=== PATIENT | female | born 1950 | race Caucasian/White ===

== ENCOUNTER → 2016-09-03 | Outpatient (CLI) | payer BC | LOC: M WUC 09:16 | PROVIDERS: ATTEND Emergency Medicine | DX: Z00.00 Encounter for general adult medical examination without abnormal findings (principal) ==

== ENCOUNTER → 2017-12-08 | Outpatient (REF) | payer BC | LOC: M LAB REF 12-09 12:10 | DX: C50.912 Malignant neoplasm of unspecified site of left female breast (principal) | CPT/HCPCS: 88305 ==

== ENCOUNTER → 2017-12-14 | Outpatient (CLI) | payer BC ==
[2017-12-14 09:06] LABS: BASO % 0.8 % (0.0-1.0); EOS # 0.1 10^3/uL (0.0-0.50); EOS % 2.3 % (0.0-3.0); HEMATOCRIT 40.1 % (36.0-47.0); HEMOGLOBIN 13.7 g/dl (12.0-15.5); IMMATURE GRANULOCYTE % 0.4 % (0-3.0); LYMPH # 1.4 10^3/uL (1.5-4.5); MEAN CORPUSCULAR HEMOGLOBIN 32.2 pg (27.0-33.0); MEAN CORPUSCULAR HGB CONC 34.2 g/dl (32.0-36.5); MEAN CORPUSCULAR VOLUME 94.4 fl (80.0-96.0); MONO # 0.4 10^3/uL (0.0-0.8); MONO % 7.8 % (0.0-5.0); NEUTROPHILS # 3.3 10^3/uL (1.8-7.7); NEUTROPHILS % 61.7 % (36.0-66.0); PLATELET COUNT, AUTOMATED 231 10^3/uL (150-450); RED BLOOD COUNT 4.25 10^6/uL (4.00-5.40); RED CELL DISTRIBUTION WIDTH 12.3 % (11.5-14.5); WHITE BLOOD COUNT 5.3 10^3/uL (4.0-10.0)
[2017-12-14 09:37] LABS: ALBUMIN 3.8 GM/DL (3.2-5.2); ALBUMIN/GLOBULIN RATIO 1.31 (1.00-1.93); ALKALINE PHOSPHATASE 79 U/L (45-117); ALT/SGPT 24 U/L (12-78); ANION GAP 7 MEQ/L (8-16); AST/SGOT 21 U/L (7-37); BILIRUBIN,TOTAL 0.7 MG/DL (0.2-1.0); BLOOD UREA NITROGEN 11 MG/DL (7-18); CARBON DIOXIDE LEVEL 28 MEQ/L (21-32); CHLORIDE LEVEL 108 MEQ/L (98-107); CHOLESTEROL LEVEL 197 MG/DL (<200); CHOLESTEROL RISK RATIO 1.931 (<5); CREATININE FOR GFR 0.58 MG/DL (0.55-1.30); FREE T4 0.76 NG/DL (0.76-1.46); GLOMERULAR FILTRATION RATE > 60.0 (>45); GLUCOSE, FASTING 84 MG/DL (70-100); HDL CHOLESTEROL 102 MG/DL (>40); LDL CHOLESTEROL 77.4 MG/DL (<100); NON-HDL-C 95 MG/DL; POTASSIUM SERUM 4.4 MEQ/L (3.5-5.1); SODIUM LEVEL 143 MEQ/L (136-145); TOTAL PROTEIN 6.7 GM/DL (6.4-8.2); TRIGLYCERIDES LEVEL 88 MG/DL (<150)
== END ==
LOC: M WUC 08:04
DX: E78.5 Hyperlipidemia, unspecified (principal); Z13.0 Encounter for screening for diseases of the blood and blood-forming organs and certain disorders involving the immune mechanism
CPT/HCPCS: 84443

== ENCOUNTER → 2018-01-10 | Outpatient (CLI) | payer MEDICARE | LOC: M RAD 08:33 | DX: C7A.8 Other malignant neuroendocrine tumors (principal) | CPT/HCPCS: 78804 ==

== ENCOUNTER → 2018-01-23 | Outpatient (CLI) | payer MEDICARE ==
[~2018-01-23] MED LIST: LIDOCAINE 1% MDV 20ML VIAL As Ordered
== END ==
LOC: M RADPRO 08:28
DX: C7A.090 Malignant carcinoid tumor of the bronchus and lung (principal)
CPT/HCPCS: 19083

== ENCOUNTER → 2018-03-07 | Outpatient (CLI) | payer MEDICARE ==
[~2018-03-07] MED LIST changes: +GASTROGRAFIN SOLUTION 30ML (Q9963) As Ordered; +ISOVUE-370 76% 100ML VIAL (Q9967) As Ordered; -LIDOCAINE 1% MDV 20ML VIAL As Ordered
== END ==
LOC: M RAD 14:16
DX: C34.32 Malignant neoplasm of lower lobe, left bronchus or lung (principal); K76.89 Other specified diseases of liver
CPT/HCPCS: Q9963

== ENCOUNTER → 2018-05-15 | Outpatient (CLI) | payer MEDICARE ==
[~2018-05-15] MED LIST changes: +AUGM500T34 PO; +CEPH500C PO; -GASTROGRAFIN SOLUTION 30ML (Q9963) As Ordered; +GASTROGRAFIN SOLUTION 30ML (Q9963) As Ordered ONE; -ISOVUE-370 76% 100ML VIAL (Q9967) As Ordered; +ISOVUE-370 76% 100ML VIAL (Q9967) As Ordered ONE; +MULTCAP PO
--- NOTE | 2018-05-15 18:36 | REP ---
CT chest with IV contrast: History: Lung carcinoma. Comparison CT study March 07, 2018. Comparison is also made with the December 16, [address] contrast dose: 100 mL of intravenous Isovue [address] findings: The more medial of the two nodular opacities in the left lower lobe measures 2.4 cm in greatest transverse dimension on March 07, 2018. This measures 2.3 cm in greatest transverse dimension today and is felt to be unchanged. The larger opacity lateral to this in the left base has become larger and more confluent. Some of this may be postobstructive change. I cannot exclude progressive neoplasm. There is a infrahilar central oval shaped nodule showing bronchial obstruction above this which measures 2.0 x 1.4 cm today. This previously measured 2.1 x 1.5 cm, it is felt to be unchanged. There is right hilar lymph node enlargement with two separate lymph nodes unchanged from December 26, 2017. There is subcarinal adenopathy, unchanged, measuring 16 mm in short axis dimension. No new adenopathy. No new pulmonary parenchymal opacity. The previously noted right posterior 5th rib findings are again seen. There is no rib destruction, however. No acute bony destructive lesion is appreciated. Impression: Intrathoracic findings are stable except that there is more consolidation in the left lower lobe which may be postobstructive pneumonia. Electronically Signed by Julian Ham MD 05/15/2018 07:49 P
--- NOTE | 2018-05-15 18:38 | REP ---
CT abdomen and pelvis with IV and oral contrast: History: Lung carcinoma. Comparison study March 07, 2018. CT contrast dose: 100 mL of intravenous Isovue [address] findings: A somewhat hypodense mass lesion is again seen in the left lobe of the liver measuring 2.2 cm in greatest dimension today, previously 2.2 cm. This is felt to be unchanged. There are two 1 cm lesions in the right superior liver unchanged. The largest lesion is again seen in the posterior segment right lobe. On March 07, 2018 this measured 3.4 cm in greatest diameter. Today this lesion measures 2.9 cm. It is felt to be slightly smaller. There are hepatic cysts which of course are unchanged. No new liver lesion is appreciated. Spleen is unremarkable. No renal lesion is observed. No adrenal masses seen on either side. The pancreas is unremarkable. There is a moderate to severe levoconvex rotoscoliosis in the upper lumbar spine. This curvature distorts visceral anatomy somewhat in the abdomen but this is unchanged. No retroperitoneal adenopathy is seen. Normal appendix is noted. Small and large bowel loops are unremarkable in the abdomen and pelvis. No uterine or adnexal abnormality is seen. No bony destructive lesion is seen. Impression: The largest hepatic metastasis appears to have decreased somewhat in size. Otherwise unchanged. Electronically Signed by Julian Ham MD 05/15/2018 07:49 P
== END ==
LOC: M RAD 13:43
PROVIDERS: ATTEND Internal Medicine Medical Oncology
DX: C34.90 Malignant neoplasm of unspecified part of unspecified bronchus or lung (principal)
CPT/HCPCS: 71260; 74177; Q9963; Q9967

== ENCOUNTER → 2018-09-05 | Outpatient (CLI) | payer MEDICARE ==
[~2018-09-05] MED LIST changes: -GASTROGRAFIN SOLUTION 30ML (Q9963) As Ordered ONE; -ISOVUE-370 76% 100ML VIAL (Q9967) As Ordered ONE
--- NOTE | 2018-09-07 15:26 | REP ---
REASON: Metastatic neuroendocrine tumor. PRIORS: CT scans of the abdomen and pelvis of 05/15/2018 and 03/07/2018 were reviewed. I have no prior CT/PET for comparison. After the intravenous administration of 8.8 millicuries of FDG-18 triplane whole body PET/CT was performed from the skull base to the mid thigh. The CT finding of a mass lesion in the left lung lower lobe on the 05/15/2018 CT of the chest shows the mass lesion to be hypermetabolic with a maximum SUV value just over 4.0. Also in the left lower lobe but more superior than the aforementioned is an additional hypermetabolic lesion having SUV values 2.7 and greater. Although difficult to evaluate in the hepatic parenchyma the metastatic foci seen on the CT are hypermetabolic. In the left hilum there is a node which is showing increased avidity for FDG, however, it is not frankly hypermetabolic with maximal SUV values less than 2.5. No additional abnormal hypermetabolic foci are seen in the neck, check, abdomen, or pelvis. IMPRESSION: Intrathoracic and intra-abdominal hypermetabolic lesions as described above. Electronically Signed by Darwin Marte DO 09/07/2018 06:57 P
== END ==
LOC: M PLARAD 11:23
PROVIDERS: ATTEND Internal Medicine Hematology & Oncology
DX: C34.31 Malignant neoplasm of lower lobe, right bronchus or lung (principal)
CPT/HCPCS: 78815; A9552

== ENCOUNTER → 2018-09-22 | Outpatient (CLI) | payer MEDICARE ==
[~2018-09-22] MED LIST changes: +LIDOCAINE 1% MDV 20ML VIAL As Ordered ONE
--- NOTE | 2018-09-22 13:23 | REP ---
Chest x-ray: Single PA radiograph. History: Status post a needle biopsy left lung base. Findings: There is no evidence of pneumothorax or hydrothorax. Scoliosis is seen. Hazy opacity is seen at the left lung base consistent with the biopsy target. Impression: No pneumothorax seen. Electronically Signed by Julian Ham MD 09/22/2018 06:29 P
--- NOTE | 2018-09-22 17:25 | REP ---
CT-guided left lower lobe lung biopsy The procedure is performed by SIVAN Castañeda, under the personal supervision of Dr. Ham. The patient has a history of a neuroendocrine metastasis on a PET/CT scan dated 09/05/2018. The risks and benefits of the procedure were explained to the patient and informed consent was obtained both verbally and written. Directly prior to the start of the procedure, a formal timeout was done in the exam room. The left lower lobe lung was localized using CT guidance. Skin was prepped and draped in the usual sterile fashion. 5 ml of 1% lidocaine was used as a local anesthetic. Using CT guidance a 19/20 gauge coaxial needle biopsy system was inserted and advanced into the nodule. 4 core biopsy samples were obtained and sent to the lab. CT images obtained directly after the biopsy show a very small pneumothorax. After the appropriate amount of monitored convalescence the patient was discharged from the department. Reviewed by SIVAN Olson 09/22/2018 12:42 P Electronically Signed by Julian Ham MD 09/22/2018 05:16 P
== END ==
LOC: M RADPRO 08:15
PROVIDERS: ATTEND Internal Medicine Hematology & Oncology
DX: R91.8 Other nonspecific abnormal finding of lung field (principal); M41.9 Scoliosis, unspecified

== ENCOUNTER → 2019-01-08 | Outpatient (CLI) | payer MEDICARE ==
[~2019-01-08] MED LIST changes: -LIDOCAINE 1% MDV 20ML VIAL As Ordered ONE
[2019-01-08 13:02] LABS: BASO % 0.5 % (0.0-1.0); EOS # 0.2 10^3/uL (0.0-0.5); HEMATOCRIT 41.3 % (36.0-47.0); HEMOGLOBIN 14.2 g/dl (12.0-15.5); LYMPH # 1.8 10^3/uL (1.5-5.0); LYMPH % 24.3 % (24.0-44.0); MEAN CORPUSCULAR HEMOGLOBIN 32.7 pg (27.0-33.0); MEAN CORPUSCULAR HGB CONC 34.4 g/dl (32.0-36.5); MEAN CORPUSCULAR VOLUME 95.2 fl (80.0-96.0); MONO # 0.8 10^3/uL (0.0-0.8); MONO % 10.9 % (0.0-5.0); NEUTROPHILS # 4.7 10^3/uL (1.5-8.5); NEUTROPHILS % 61.9 % (36.0-66.0); PLATELET COUNT, AUTOMATED 248 10^3/uL (150-450); RED BLOOD COUNT 4.34 10^6/uL (4.00-5.40); WHITE BLOOD COUNT 7.5 10^3/uL (4.0-10.0)
[2019-01-08 13:21] LABS: ALBUMIN 4.3 GM/DL (3.2-5.2); ALT/SGPT 22 U/L (12-78); BILIRUBIN,TOTAL 0.6 MG/DL (0.2-1.0); BLOOD UREA NITROGEN 18 MG/DL (7-18); CALCIUM LEVEL 9.8 MG/DL (8.8-10.2); CARBON DIOXIDE LEVEL 31 MEQ/L (21-32); CHLORIDE LEVEL 103 MEQ/L (98-107); CREATININE FOR GFR 0.78 MG/DL (0.55-1.30); GLOMERULAR FILTRATION RATE > 60.0 (>45); GLUCOSE, FASTING 104 MG/DL (70-100); LDH LACTATE DEHYDROGENASE 241 U/L (84-246); POTASSIUM SERUM 4.5 MEQ/L (3.5-5.1); SODIUM LEVEL 139 MEQ/L (136-145); TOTAL PROTEIN 7.2 GM/DL (6.4-8.2)
[2019-01-08 18:47] LABS: ERYTHROCYTE SEDIMENTATION RATE 14 mm/hr (0-30)
[2019-01-11 10:09] LABS: ANGIOTENSIN 1 CONVERTING ENZYM 54 U/L (14-82)
== END ==
LOC: M WUC 10:56
PROVIDERS: ATTEND Internal Medicine Hematology & Oncology
DX: Z85.118 Personal history of other malignant neoplasm of bronchus and lung (principal)

== ENCOUNTER 2019-04-24 05:47 | Day surgery (SDC) | payer MEDICARE ==
[~2019-04-24] VITALS: Ht 165.1 cm; Wt 49.0 kg
[2019-04-24] MEDS ORDERED: LIDOCAINE 1% MDV 20ML VIAL SQ PRN (06:00)
[2019-04-24] MEDS ORDERED: ceFAZolin SOD 1 GM in D5W MINI-BAG PLUS 50 ML IV ONE (07:00)
[2019-04-24] MEDS ORDERED: HEPARIN SOD (PORCINE) 5000 UNITS/ML VIAL SQ ONE (07:00)
[2019-04-24] MEDS ORDERED: LR 1,000 ML IV ONE (07:00)
[2019-04-24] MEDS ORDERED: BUPIVACAINE HCL 0.25% 30 ML VIAL As Ordered ONE (07:13)
[2019-04-24] MEDS ORDERED: LIDOCAINE 1% SDV INJ 30 ML VIAL As Ordered ONE (07:13)
[2019-04-24] MEDS ORDERED: PROPOFOL 200 MG/20 ML VIAL As Ordered ONE (07:21)
[2019-04-24] MEDS ORDERED: dexameTHASONE 4 MG/ML 1ML VIAL (J1100) As Ordered ONE (07:21)
[2019-04-24] MEDS ORDERED: LIDOCAINE 2% INJ 100 MG/5 ML SDV (FOR ANES.) As Ordered ONE (07:21)
[2019-04-24] MEDS ORDERED: MIDAZOLAM INJ 2 MG/2 ML VIAL (J2250) As Ordered ONE (07:22)
[2019-04-24] MEDS ORDERED: fentaNYL 100 MCG/2 ML INJECTION (J3010) As Ordered ONE (07:23)
[2019-04-24] MEDS ORDERED: ONDANSETRON 4MG/2ML VIAL (J2405) As Ordered ONE (08:25)
[2019-04-24] MEDS ORDERED: PERC5TAB12 PO (09:05)
[2019-04-24] MEDS ORDERED: PERCOCET 5MG/325MG TAB PO PRN (09:15)
[2019-04-24] MEDS ORDERED: ONDANSETRON 4MG/2ML VIAL (J2405) IV PRN ×2 (09:15)
[2019-04-24] MEDS ORDERED: fentaNYL 100 MCG/2 ML INJECTION (J3010) IV PRN (09:15)
[2019-04-24] MEDS ORDERED: LR 1,000 ML IV SCH (09:15)
[2019-04-24 09:35] VITALS: BP 144/79
--- NOTE | 2019-04-26 10:37 | ROOPDOC ---
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 FITNESS MANAGEMENT DIRECTOR: ANESTHESIA: moderate sedation and local anesthetic ESTIMATED BLOOD LOSS: Approximately 5 mL. COMPLICATIONS: none REMARKS: none PROCEDURE NOTE: INDICATIONS: Ms. Plasencia is a 68 year old woman who was diagnosed with neuroendocrine carcinoma of unknown primary with metastasis to the left breast. Patient undergo chemotherapy treatment for presumed lung primary. She was doing well, however, she has been bothered by left breast mass which constantly reminds her about the stress of treatment causing anxiety and pain. Patient wished to have the left breast mass excised. We had an extensive discussion that excision of the lesion will not result in improvement of her prognosis and that it is aimed at alleviating her pain and anxiety about the lesion as well as to obtain more tissues for further evaluation. She was medically cleared by her primary care doctor. Risks and possible complications of surgical procedure including bleeding, infection and injury to surrounding structures were explained to the patient and she wished to proceed. Consent was signed. The site of palpable lump was marked and my initials were placed on the operative site (left). Since patient has an active diagnosis of cancer, subcutaneous injection of 5000 units of heparin was done in Preop. DETAILS: Patient was taken to the operating room and placed supine on the operating room table. A sign in was called stating patients name, date of and the procedure to be done. Preoperative antibiotics were infused. Smooth induction of moderate sedation anesthesia was done. Patients hands were extended on arm rests and placed in the protective foam. Care was taken not to over extend patients arms. Patients left breast was prepped and draped in the usual fashion. The lesion was evaluated with ultrasound perioperatively to confirm its location. Lesion was found to be relatively superficial. Appropriate time out was done and patients name, date of , and the procedure to be done were confirmed. Local anesthetic using 1% lidocaine and 0.25 % Marcaine 50/50 mix was injected to create a field block with care taken not to distort the lesion. Radial lateral incision was made over the lump with scalpel number 15 and the sharp dissection was continued through the s ubcutaneous tissues. The lump was identified and excised carefully with a rim of surrounding tissues. The mass was marked with short stitch marking superior edge and long stitch marking lateral edge. The specimen was labeled with patients name and farhad cation left breast mass and sent to pathology. The resection cavity was inspected for bleeding and appropriate hemostasis was achieved. Additional local anesthetic was given to surrounding tissues. The deep layers were approximated with 3-0 Vicryl stitch to obliterate the space and to decrease possible breast deformity formation. The dermis was closed with 3-0 Monocryl and skin was closed with 4-0 Monocryl. Steri strips was placed over the incision. Patient emerged from the anesthesia without any problems. Fluffs were placed over the operating site and patients upper chest was wrapped snuggly in the AMITA wrap. Patient tolerated procedure well and was taken to recovery unit in stable condition. MARISELA ROBERT DO Apr 26, 2019 10:37
== END 2019-04-24 09:55 | disposition home or self-care (01) ==
LOC: M SDC 05:47
PROVIDERS: ATTEND Surgery
DX: C50.912 Malignant neoplasm of unspecified site of left female breast (principal); E78.49 Other hyperlipidemia
CPT/HCPCS: 19120; 88305; J0690; J2250; J2405; J3010

== ENCOUNTER → 2019-05-05 | Outpatient (CLI) | payer MEDICARE ==
[~2019-05-05] MED LIST changes: +PERC5TAB12 PO
[2019-05-05 14:05] LABS: BLOOD UREA NITROGEN 16 MG/DL (7-18); CALCIUM LEVEL 9.1 MG/DL (8.8-10.2); CARBON DIOXIDE LEVEL 30 MEQ/L (21-32); CHLORIDE LEVEL 106 MEQ/L (98-107); GLOMERULAR FILTRATION RATE > 60.0 (>45); GLUCOSE, FASTING 90 MG/DL (70-100); POTASSIUM SERUM 4.8 MEQ/L (3.5-5.1); SODIUM LEVEL 142 MEQ/L (136-145)
== END ==
LOC: M WUC 08:14
PROVIDERS: ATTEND Surgery
DX: C7A.8 Other malignant neuroendocrine tumors (principal)

== ENCOUNTER → 2019-05-07 | Outpatient (CLI) | payer MEDICARE ==
[~2019-05-07] MED LIST changes: +PROHANCE 279.3MG/ML 5ML VIAL (A9576) As Ordered ONE
--- NOTE | 2019-05-07 13:04 | REP ---
Bilateral breast MRI study without and with IV gadolinium: History: Neuroendocrine carcinoma diagnosed initially in the left breast. Technique: Three Judie MRI imaging was performed with a dedicated breast coil. Axial, coronal, and sagittal T1 and T2-weighted scans were obtained with and without fat saturation in the usual fashion. The study includes dynamically acquired post gadolinium enhanced imaging subtraction imaging. Maximal intensity projection and multiplanar re-formation imaging is included as well. The study was interpreted with the aid of YecurisD, an FDA approved computer-aided detection (CAD) software program, on a dedicated breast MRI work station. The gadolinium enhancement dose is 10 mL of intravenous ProHance. Findings: There is a moderate amount of fibroglandular tissue bilaterally and roughly symmetrically. There is an area of in the left breast upper outer quadrant posteriorly which demonstrates micrometallic field susceptibility artifact and postoperative change from recent excision biopsy. There is no evidence of axillary lymphadenopathy or significant breast cystic change. Some magnetic field susceptibility artifact is visible here. There is no evidence of mass or abnormal contrast enhancement in this region. High-resolution pre and postcontrast T1 and T2-weighted scans show no other area of suspicious morphologic abnormality in either breast. Dynamically acquired sequential post contrast images show no suspicious area of enhancement and/or washout in either breast to suggest malignancy. Subtraction images are unremarkable. Impression: BIRADS category 2 benign findings. Postoperative changes upper outer quadrant left breast. No suspicious abnormality. Electronically Signed by Julian Ham MD 05/07/2019 06:18 P
== END ==
LOC: M RAD 09:25
PROVIDERS: ATTEND Surgery
DX: C7A.8 Other malignant neuroendocrine tumors (principal); C50.911 Malignant neoplasm of unspecified site of right female breast; C50.912 Malignant neoplasm of unspecified site of left female breast
CPT/HCPCS: A9576; C8908

== ENCOUNTER → 2019-11-08 | Outpatient (CLI) | payer MEDICARE ==
[~2019-11-08] MED LIST changes: -PROHANCE 279.3MG/ML 5ML VIAL (A9576) As Ordered ONE
[2019-11-08 11:41] LABS: BASO % 0.4 % (0.0-1.0); EOS # 0.1 10^3/uL (0.0-0.5); EOS % 0.6 % (0.0-3.0); HEMATOCRIT 40.3 % (36.0-47.0); HEMOGLOBIN 13.5 g/dl (12.0-15.5); LYMPH # 1.2 10^3/uL (1.5-5.0); LYMPH % 13.7 % (24.0-44.0); MEAN CORPUSCULAR HEMOGLOBIN 32.2 pg (27.0-33.0); MEAN CORPUSCULAR HGB CONC 33.5 g/dl (32.0-36.5); MEAN CORPUSCULAR VOLUME 96.2 fl (80.0-96.0); MONO # 0.8 10^3/uL (0.0-0.8); MONO % 8.5 % (0.0-5.0); NEUTROPHILS # 6.9 10^3/uL (1.5-8.5); NEUTROPHILS % 76.5 % (36.0-66.0); PLATELET COUNT, AUTOMATED 435 10^3/uL (150-450); RED BLOOD COUNT 4.19 10^6/uL (4.00-5.40)
[2019-11-08 12:17] LABS: ERYTHROCYTE SEDIMENTATION RATE 43 mm/hr (0-30)
[2019-11-08 12:19] LABS: ALBUMIN 3.4 GM/DL (3.2-5.2); BILIRUBIN,DIRECT 0.1 MG/DL (0.0-0.2); BILIRUBIN,TOTAL 0.3 MG/DL (0.2-1.0); C REACTIVE PROTEIN QUANTITATIV 0.53 MG/DL (0.00-0.30); TOTAL PROTEIN 7.3 GM/DL (6.4-8.2)
[2019-11-08 12:34] LABS: BLOOD UREA NITROGEN 21 MG/DL (7-18); CALCIUM LEVEL 9.3 MG/DL (8.8-10.2); CARBON DIOXIDE LEVEL 25 MEQ/L (21-32); CHLORIDE LEVEL 97 MEQ/L (98-107); CREATININE FOR GFR 0.66 MG/DL (0.55-1.30); GLOMERULAR FILTRATION RATE > 60.0 (>45); GLUCOSE, FASTING 83 MG/DL (70-100); POTASSIUM SERUM 4.3 MEQ/L (3.5-5.1); SODIUM LEVEL 130 MEQ/L (136-145)
[2019-11-13 02:07] LABS: EBV VIRAL CAPSID AG IgM >160.0 U/mL (0.0-35.9); Lyme Disease IgG Ab 18 kDa Ban Present (.); Lyme Disease IgG Ab 23 kDa Ban Absent (.); Lyme Disease IgG Ab 28 kDa Ban Present (.); Lyme Disease IgG Ab 30 kDa Ban Absent (.); Lyme Disease IgG Ab 39 kDa Ban Present (.); Lyme Disease IgG Ab 41 kDa Ban Present (.); Lyme Disease IgG Ab 45 kDa Ban Absent (.); Lyme Disease IgG Ab 58 kDa Ban Present (.); Lyme Disease IgG Ab 66 kDa Ban Absent (.); Lyme Disease IgG Ab 93 kDa Ban Absent (.); Lyme Disease IgG West Blot Int Positive (.); Lyme Disease IgM Ab 23 kDa Ban Present (.); Lyme Disease IgM Ab 39 kDa Ban Present (.); Lyme Disease IgM Ab 41 kDa Ban Present (.); Lyme Disease IgM Ab Quantitati 7.89 index (0.00-0.79); Lyme Disease IgM West Blot Int Positive (.)
== END ==
LOC: M WUC 09:51
PROVIDERS: ATTEND Physician Assistant
DX: R53.83 Other fatigue (principal)

== ENCOUNTER → 2021-01-22 | Outpatient (CLI) | payer MEDICARE ==
[2021-01-22 11:32] LABS: ALT/SGPT 26 U/L (12-78); BILIRUBIN,TOTAL 0.7 MG/DL (0.2-1.0); BLOOD UREA NITROGEN 8 MG/DL (7-18); CALCIUM LEVEL 9.4 MG/DL (8.8-10.2); CARBON DIOXIDE LEVEL 29 MEQ/L (21-32); CHLORIDE LEVEL 103 MEQ/L (98-107); CHOLESTEROL LEVEL 225 MG/DL (<200); CREATININE FOR GFR 0.65 MG/DL (0.55-1.30); GLOMERULAR FILTRATION RATE > 60.0 (>45); GLUCOSE, FASTING 86 MG/DL (70-100); HDL CHOLESTEROL 110 MG/DL (>40); POTASSIUM SERUM 4.1 MEQ/L (3.5-5.1); SODIUM LEVEL 141 MEQ/L (136-145); TRIGLYCERIDES LEVEL 76 MG/DL (<150)
[2021-01-22 11:33] LABS: CHOLESTEROL RISK RATIO 2.045 (<5); LDL CHOLESTEROL 100 MG/DL (<100); NON-HDL-C 115 MG/DL; TOTAL 25(OH) VITAMIN D 95.4 NG/ML (30.0-100.0)
[2021-01-22 11:54] LABS: BASO % 0.8 % (0.0-1.0); EOS # 0.1 10^3/uL (0.0-0.5); EOS % 2.5 % (0.0-3.0); HEMATOCRIT 42.1 % (36.0-47.0); LYMPH # 1.6 10^3/uL (1.5-5.0); LYMPH % 30.6 % (24.0-44.0); MEAN CORPUSCULAR HEMOGLOBIN 31.6 pg (27.0-33.0); MEAN CORPUSCULAR HGB CONC 33.3 g/dl (32.0-36.5); MONO # 0.5 10^3/uL (0.0-0.8); MONO % 9.1 % (2.0-8.0); NEUTROPHILS % 56.8 % (36.0-66.0); PLATELET COUNT, AUTOMATED 248 10^3/uL (150-450); RED BLOOD COUNT 4.43 10^6/uL (4.00-5.40); WHITE BLOOD COUNT 5.3 10^3/uL (4.0-10.0)
== END ==
LOC: M WUC 08:07
PROVIDERS: ATTEND Physician Assistant
DX: Z13.220 Encounter for screening for lipoid disorders (principal); E78.00 Pure hypercholesterolemia, unspecified

== ENCOUNTER → 2021-02-03 | Outpatient (CLI) | payer MEDICARE ==
[~2021-02-03] MED LIST changes: +GASTROGRAFIN SOLUTION 30ML (Q9963) As Ordered ONE; +ISOVUE-370 76% 100ML VIAL As Ordered ONE
--- NOTE | 2021-02-03 10:00 | REP ---
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 COMPARISON: Comparison CT study of the chest is from May 15, 2018. Comparison PET-CT study September 05, 2018. TECHNIQUE: Helical scanning is acquired following the intravenous injection of 100 mL of Isovue 370. Coronal and sagittal MPR images are provided. 3 mm axial images re-formatted. FINDINGS: There is no evidence of pleural or pericardial effusion. There is good opacification of the vascular blood pool and there is no evidence to suggest pulmonary embolus or aortic dissection. There is some vascular calcification in the distribution of the left coronary artery again seen. No pericardial effusion is seen. There is subcarinal lymphadenopathy. This is slightly more prominent although not new when compared to the prior CT study from May of 2018. This node measures 2.1 x 2.5 transverse by 3.0 cm craniocaudal. Its previous transverse dimensions were 1.6 by 2.0 cm by my measurement. There is a right hilar lymph node measuring 0.9 cm in short axis dimension. There is left hilar Lat lymphadenopathy visible today which appears somewhat larger but is also not new when compared to the 2019 study. This measures 2.2 x 2.1 cm in transverse dimension today, previously 1.5 x 1.4 cm. The right lower lobe pulmonary artery is attenuated. There is a multilobular mass in the left lower lobe of the lung which is similar to the prior study. The more lateral component of this left lower lobe process is lower in density and could be inspissated endobronchial disease or secretions. There is a somewhat higher attenuation solid-appearing component measuring 3.2 cm in greatest diameter. Previously this component measured 2.3 cm. There is a nodular masslike component above this in the infrahilar region of the left lower lobe which is also gradually increased in size. this component previously measured 1.7 cm, today 2.8 cm in greatest transverse dimension. There is some platelike atelectasis in the lung base on the left in the lower lobe. There is a focal calcified pleural plaque in the right upper lobe posteriorly. No other pulmonary nodule is appreciated. A levoconvex thoracolumbar scoliosis is observed. No bony destructive lesion is seen. No breast mass is appreciated today by CT. IMPRESSION: Hilar and mediastinal adenopathy and left lower lobe mass lesions somewhat increased in size over comparison chest CT study May 15, 2018. No new pulmonary nodule is seen. <Electronically signed by Jay Ham > 02/03/21 [id number]
--- NOTE | 2021-02-03 10:06 | REP ---
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 COMPARISON: Comparison CT abdomen and pelvis May 15, 2018. Comparison PET-CT September 05, 2018. TECHNIQUE: Helical scanning is acquired and 3 mm axial images re-formatted. Coronal and sagittal MPR images are generated. The CT contrast enhancement dose is 100 mL of intravenous Isovue 370. FINDINGS: There are 2 solid liver lesions again noted. These have increased slightly in size but are not new when compared with the May 15, 2018 study. In the left lobe anteriorly there is a 2.7 cm lesion which previously measured 2.2 cm. Posteriorly in the right lobe there is a solid lesion which previously measured 2.9 cm and today measures 4.1 cm in greatest diameter. There are several small cysts in the liver as well which are unchanged. No pancreatic lesion is seen. No new liver mass lesion is seen. The spleen is unremarkable. No evidence of adrenal mass is observed on either side. The kidneys enhance symmetrically and are morphologically intact. There is a moderate levoconvex thoracolumbar scoliotic curve. No bony destructive lesion is appreciated. no urine or adnexal abnormality is seen. There is left colonic diverticulosis without CT evidence of diverticulitis. Small and large bowel loops are otherwise unremarkable. Normal caliber aorta is seen. Refer to CT report of this date for chest CT findings. IMPRESSION: The 2 previously identified liver masses have increased slightly in size, the largest measures 4.1 cm in greatest diameter is today. No new mass lesion is visible. <Electronically signed by Jay Ham > 02/03/21 1002
--- NOTE | 2021-02-03 11:00 | REPVR ---
PROCEDURE INFORMATION: Exam: CT Neck With Contrast Exam date and time: 02/03/2021 9:26 AM Age: 70 years old Clinical indication: Condition or disease; Cancer; Other: [place]; Additional info: Mita cell carcinoma of scalp and neck TECHNIQUE: Imaging protocol: Computed tomography images of the neck with contrast. Radiation optimization: All CT scans at this facility use at least one of these dose optimization techniques: automated exposure control; mA and/or kV adjustment per patient size (includes targeted exams where dose is matched to clinical indication); or iterative reconstruction. Contrast material: ISOVUE 370; Contrast volume: 100 ml; Contrast route: INTRAVENOUS (IV); COMPARISON: PT PET/CT Skull/mid thigh 09/05/2018 1:18 PM FINDINGS: Nasopharynx: Unremarkable. Oropharynx: Unremarkable. No significant tonsillar enlargement. Hypopharynx: Unremarkable. Larynx: Unremarkable. Normal epiglottis. Retropharyngeal space: Unremarkable. Submandibular/Parotid glands: Normal. Glands are normal in size. Thyroid: Normal. No enlarged or calcified nodules. Lymph nodes: Unremarkable. No lymphadenopathy. Trachea: Visualized trachea is unremarkable. Lungs: Unremarkable as visualized. Bones/joints: There is degenerative disc disease and spondylosis. Soft tissues: Unremarkable. No significant soft tissue swelling. IMPRESSION: No acute soft tissue abnormality. Correlation with physical examination is recommended. Electronically signed by: Kailey Rob On 02/03/2021 11:00:13 AM
== END ==
LOC: M RAD 07:37
PROVIDERS: ATTEND Physician Assistant
DX: C4A.4 Merkel cell carcinoma of scalp and neck (principal)
CPT/HCPCS: 70491; 71260; 74177; Q9963; Q9967

== ENCOUNTER → 2022-06-26 | Outpatient (REF) | payer MEDICARE ==
[~2022-06-26] MED LIST changes: -GASTROGRAFIN SOLUTION 30ML (Q9963) As Ordered ONE; -ISOVUE-370 76% 100ML VIAL As Ordered ONE
== END ==
LOC: M LAB REF 18:37
PROVIDERS: ATTEND Physician Assistant
DX: R19.7 Diarrhea, unspecified (principal)